=== PATIENT | female | born 1990 | race African-American/Black ===

== ENCOUNTER 2024-12-10 18:50 | Observation (INO) ==
[2024-12-10 19:05] LABS: Basophils #(Absolute) Auto 0.2 (0.0-0.1); Basophils%(Percent) Auto 1.4 (0.1-0.85); Eosinophils#(Absolute)Auto 0.1 (0.0-0.2); Eosinophils%(Percent) Auto 0.5 % (0.4-2.8); Granulocytes % - Auto 53.6 % (47.8-71.3); Granulocytes#(Absolute)- Auto 6.3 (2.3-6.0); Hematocrit 36.6 % (35.9-46.7); Mean Corpuscular Volume 67.7 fl (81.0-93.7); Monocytes #(Absolute)- Auto 0.8 (1.1-3.1); Monocytes %(Percent)- Auto 7.1 % (3.6-9.8); Platelet Count 369 K/uL (152-353); White Blood Count 11.7 K/uL (4.3-9.3)
[2024-12-10] MEDS ORDERED: 0.9 % SODIUM CHLORIDE 1000 ML 1,000 ML IV ONE ×3 (19:15→21:36)
[2024-12-10] MEDS ORDERED: 0.9 % SODIUM CHLORIDE 1000 ML 1,000 ML IV SCH ×2 (19:15→20:15)
[2024-12-10] MEDS: 0.9 % SODIUM CHLORIDE 1000 ML 1,000 ML IV ONE ×3 (19:17→21:45)
[2024-12-10 19:20] LABS: Potassium 3.9 mmol/L (3.6-5.2)
[2024-12-10 19:27] LABS: Urine Appearance CLEAR (CLEAR); Urine Blood 2+ (NEG - TRACE); Urine Color PALE YELLOW (STRAW/YELL.); Urine Urobilinogen Normal (NORMAL)
[2024-12-10 19:28] LABS: Urine Amorphous Sediment Many (Negative)
[2024-12-10 19:29] LABS: Urine Yeast Negative (Negative)
--- NOTE | 2024-12-10 19:52 | Emergency Department Note ---
HPI - General Adult General Chief complaint: Recheck/Abnormal Lab/Rx Stated complaint: NEWLY ONSET DIABETES Time Seen by Provider: 12/10/24 19:02 Source: patient and EMS Mode of arrival: ambulance History of Present Illness HPI narrative: 34-year-old female with EMS arrival from [facility] due to elevated blood glucose earlier this week. Patient states she was started on metformin and insulin sliding scale at the facility. Patient reports increased blood glucose and generalized weakness of last 1 to 2 days. Patient denies diabetes prior to her acute onset earlier this week. Severity: moderate Associated symptoms: Reports headaches and malaise Related Data Home Medications Medication Instructions Recorded Confirmed medroxyprogesterone 150 mg/mL 150 mg IM .every 84 days 12/10/24 12/10/24 intramuscular suspension Allergies Allergy/AdvReac Type Severity Reaction Status Date / Time No Known Drug Allergies Allergy Verified 12/10/24 19:00 Review of Systems Status of ROS 10 or more systems reviewed and unremark able except as noted in history and below PFSH PFS Medical History Anxiety GERD (gastroesophageal reflux disease) DM (diabetes mellitus) Surgical History H/O tubal ligation Exam Constitutional: normal general appearance and no apparent distress Vital Signs - 24 hr 12/10/24 18:50 Temperature 98.2 F Pulse Rate 112 H Respiratory Rate 18 Blood Pressure 131/92 Pulse Oximetry 99 Oxygen Delivery Me thod Room Air HENMT: normocephalic and head/scalp atraumatic dry mucus membranes Eyes: PERRL and conjunctivae normal Neck/C-Spine: visual inspection normal, trachea midline and supple Lymph: no lymphadenopathy noted Chest: inspection of chest normal Respiratory: breath sounds equal bilaterally, normal respiratory effort, clear to auscultation bilaterally, no wheezes and no rales Cardiovascular: normal heart rate noted, regular rhythm noted, no gallop, no rub and no murmur Tachycardia 100-120s on monitor Gastrointestinal: abdomen normal to inspection, abdomen soft to palpation, nontender to palpation, nondistended, no masses and no ascites Genitourinary: no CVA tenderness Back/Pelvis: spine normal to inspection Extremities: normal to inspection, normal to palpation, no tenderness and full ROM Neurology: licensed physical therapist II-XII intact, no movement abnormality noted, gait normal and GCS normal Psychiatry: mental status grossly normal, oriented x3, thought process normal, cooperative and affect normal Skin: skin color normal, no rash, no lesions and no ecchymosis noted Course Course Hospital Course: DKA Pathway 2L NS BOLUS Regular Insulin 10units IV 1L NS 500ml/hr x 1 Pending admission vs transfer Consultations Consultation #1: Maddy, Case Management, admit Vital Signs Vital signs: Vital Signs Temperature 98.2 F 12/10/24 18:50 Pulse Rate 112 H 12/10/24 18:50 Respiratory Rate 18 12/10/24 18:50 Blood Pressure 131/92 12/10/24 18:50 Pulse Oximetry 99 12/10/24 18:50 Oxygen Delivery Method Room Air 12/10/24 18:50 Temperature 98.2 F 12/10/24 18:50 Pulse Rate 112 H 12/10/24 18:50 Respiratory Rate 18 12/10/24 18:50 Blood Pressure 131/92 12/10/24 18:50 Pulse Oximetry 99 12/10/24 18:50 Oxygen Delivery Method Room Air 12/10/24 18:50 Medical Decision Making [facility] Narrative Medical decision making narrative: History and physical exam consistent with acute hyperglycemia in a known diabetic. Patient presented with mild diabetic ketoacidosis. Patient was placed on DKA pathway fluid resuscitated, IV insulin with significant improvement in vital signs and lab analysis. Patient will be admitted to [facility] for continued IV hydration, electrolyte protocols, and IV sliding scale. Differential diagnosis considered below Differential Diagnosis Differential Diagnosis: Diabetic ketoacidosis, hyperglycemia diabetes, electrolyte derangement, acu Medical Records Medical records reviewed: Yes I reviewed the patient's medical records Lab Data Lab results reviewed: Yes I reviewed the patient's lab results Labs: Lab Results 12/10/24 12/10/24 12/10/24 Range/Units 19:00 19:58 23:05 WBC 11.7 H (4.3-9.3) K/uL RBC 5.4 (4.00-5.50) M/uL Hgb 11.1 L (12.5-15.8) gm/dL Hct 36.6 (35.9-46.7) % MCV 67.7 L (81.0-93.7) fl MCH 20.6 L (27.6-32.2) pg MCHC 30.4 L (33.1-35.3) g/dl RDW 20.8 H (11.4-14.2) % Plt Count 369 H (152-353) K/uL MPV 8.8 (6.9-10.8) fl Gran % 53.6 (47.8-71.3) % Lymph % (Auto) 37.4 (20.0-43.0) % [place] % (Auto) 7.1 (3.6-9.8) % Eos % (Auto) 0.5 (0.4-2.8) % Baso % (Auto) 1.4 H (0.1-0.85) Lymph # (Auto) 4.4 H (1.1-3.1) [place] # (Auto) 0.8 L (1.1-3.1) Eos # (Auto) 0.1 (0.0-0.2) Baso # (Auto) 0.2 H (0.0-0.1) Absolute Gran (auto) 6.3 H (2.3-6.0) VBG pH 7.32 L (7.35-7.38) Sodium 128 L 137 (136-145) mmol/L Potassium 3.9 3.1 L (3.6-5.2) mmol/L Chloride 95.0 L 105.0 (98-107) mmol/L Carbon Dioxide 16 L 21 (21-32) mmol/L Anion Gap 17.0 H 11.0 (4-14) mEq/L BUN 15 10 (7-18) mg/dL Creatinine 1.0 0.7 (0.6-1.3) mg/dL Estimated GFR 75.8 116.3 (>59.9) Glucose 565 H* 353 H (70-110) mg/dL Calcium 9.2 8.1 L (8.5-10.1) mg/dL Total Bilirubin 0.39 (0.0-1.0) mg/dL AST 17 (15-37) U/L ALT 17 L (30-65) U/L Alkaline Phosphatase 184 H (50-136) U/L Total Protein 7.9 (6.4-8.2) g/dL Albumin 3.4 (3.4-5.0) g/dL Urine Color Pale yellow (STRAW/YELL.) Urine Appearance Clear (CLEAR) Ur Specific [place] 1.010 (1.001-1.035) Urine Protein Negative (NEGATIVE) Urine Glucose (UA) 4+ (NORMAL) Urine Ketones Large (NEGATIVE) Urine Occult Blood 2+ (NEG - TRACE) Urine Nitrite Negative (NEGATIVE) Urine Bilirubin Negative (NEGATIVE) Urine Urobilinogen Normal (NORMAL) Ur Leukocyte Esterase Negative (NEGATIVE) Urine RBC 10 - 25 (0 - 5) Urine WBC 2 - 5 ( 0 - 5) Ur Epithelial Cells Many (Few/HPF) Amorphous Sediment Many (Negative) Urine Bacteria Few (Negative) Hyaline Casts Few (Negative) RBC Casts 2 - 5 (Negative) Urine Mucus Few (Negative) Urine Trichomonas Negative (Negative) Urine Yeast Negative (Negative) Urine Test Negative (Negative) Fluid pH 6.0 (5 - 9) Acetone, Qual Large Critical Care Time Critical Care Time Critical Care Time: Yes Total Critical Care Time: 40 Attestation: DKA Pathway, IV insulin, consultation, admission Discharge Plan Discharge Patient Disposition: Admitted As Observation Condition: Stable Chief Complaint: Recheck/Abnormal Lab/Rx Clinical Impression: Hyperglycemia due to diabetes mellitus, Acute hypokalemia Prescriptions: No Action medroxyprogesterone 150 mg/mL suspension 150 mg IM .every 84 days Patient Comments: INJECT ONE ML INTRAMUSCULARLY EVERY 84 DAYS (TO be given between 10/29/24- 11/04/24) Print Language: Nepali Referrals: Provider,NO PCP [Primary Care Provider] - Time of Disposition: 23:56
[2024-12-10 23:28] LABS: Potassium 3.1 mmol/L (3.6-5.2)
[2024-12-10] MEDS ORDERED: KETOROLAC 30 MG/ML INJ VIAL IVP PRN (23:56)
[2024-12-10] MEDS ORDERED: ONDANSETRON HCL/PF 4 MG/2 ML VIAL INJ PRN (23:56)
[2024-12-11] MEDS: 0.9 % SODIUM CHLORIDE 1000 ML 1,000 ML IV SCH (02:32)
[2024-12-11 03:59] VITALS: RESP 19
[2024-12-11 04:06] LABS: Potassium 3.1 mmol/L (3.6-5.2)
[2024-12-11 07:55] VITALS: BP 124/74; PULSE 94; TEMP 98.6
--- NOTE | 2024-12-11 11:00 | Discharge Summary ---
DS: Providers Provider Date of admission: 12/10/24 23:56 Primary care physician: NO PCP Provider Attending physician on discharge: Karolina River Discharging clinician: Karolina River Anticipated date of discharge: 12/11/24 DS: Diagnosis Discharge Diagnosis (1) DM (diabetes mellitus): Qualifiers: Diabetes mellitus type: type 2 Diabetes mellitus custodial insulin use: unspecified ent surgeon insulin use status Diabetes mellitus complication status: with hyperglycemia Qualified Code(s): E11.65 - Type 2 diabetes mellitus with hyperglycemia Plan DKA,resolved with IV insulin. Medrol dose pack stopped. Now on SSI. Discharge home to continue AC/HS SSI prn for hyperglycemia. DS: Summary Hospital Course Hospital Course: DKA Pathway 2L NS BOLUS Regular Insulin 10units IV 1L NS 500ml/hr x 1 Pending admission vs transfer Patient on Regular SSI AC/HS. Can discharge home. Status at Discharge Overall status at discharge: patient is back to baseline Time Spent with Patient Time attestation: Total time spent providing and/or coordinating discharge services: Exam Constitutional: normal general appearance, no apparent distress, average body habitus, no limitations and alert Vital Signs - 24 hr 12/10/24 18:50 12/10/24 19:30 12/10/24 20:00 Temperature 98.2 F Pulse Rate 112 H 94 H 89 Pulse Rate [Bilate ral] Respiratory Rate 18 18 18 Blood Pressure 131/92 113/72 104/61 Blood Pressure [Le ft Arm] Pulse Oximetry 99 98 98 Oxygen Delivery Me thod Room Air Room Air Room Air 12/10/24 20:30 12/10/24 21:30 12/10/24 22:30 Temperature Pulse Rate 83 91 H 97 H Pulse Rate [Bilate ral] Respiratory Rate 18 20 20 Blood Pressure 100/60 131/73 109/64 Blood Pressure [Le ft Arm] Pulse Oximetry 98 99 97 Oxygen Delivery Me thod Room Air Room Air Room Air 12/10/24 23:30 12/11/24 00:30 12/11/24 00:30 Temperature 98.2 F Pulse Rate 83 76 76 Pulse Rate [Bilate ral] Respiratory Rate 20 20 20 Blood Pressure 119/63 114/64 114/64 Blood Pressure [Le ft Arm] Pulse Oximetry 98 99 99 Oxygen Delivery Me thod Room Air Room Air 12/11/24 03:58 12/11/24 07:53 Temperature 98.3 F 98.6 F Pulse Rate Pulse Rate [Bilate ral] 77 94 H Respiratory Rate 19 19 Blood Pressure Blood Pressure [Le ft Arm] 104/65 124/74 Pulse Oximetry 98 97 Oxygen Delivery Me thod Room Air Room Air HENMT: normocephalic, head/scalp atraumatic and hearing grossly normal bilaterally Eyes: EOMs intact bilaterally, conjunctivae normal and no scleral icterus Neck/C-Spine: visual inspection normal and cervical spine nontender Lymph: no lymphadenopathy noted and no lymphedema noted Chest: inspection of chest normal Respiratory: breath sounds equal bilaterally, normal respiratory effort, clear to auscultation bilaterally, no wheezes, no rales and no use of accessory muscles Cardiovascular: normal heart rate noted, regular rhythm noted, no gallop, no rub, no murmur and no JVD Gastrointestinal: abdomen normal to inspection, abdomen soft to palpation, nontender to palpation and normoactive bowel sounds Genitourinary: deferred Back/Pelvis: no thoracic spine tenderness and no lumbar spine tenderness Extremities: normal to inspection, normal to palpation, no tenderness and full ROM Neurology: patient access specialist II-XII intact, no movement abnormality noted, no focal motor deficit noted and speech normal Psychiatry: mental status grossly normal, oriented x3, thought process normal, cooperative and affect normal Skin: skin color normal, no rash and no lesions DS: Data Data Completed and Pending Labs on day of discharge: Labs from last 24 hours 12/11/24 12/10/24 12/10/24 04:00 23:05 19:58 WBC RBC Hgb Hct MCV MCH MCHC RDW Plt Count MPV Gran % Lymph % (Auto) [place] % (Auto) Eos % (Auto) Baso % (Auto) Lymph # (Auto) [place] # (Auto) Eos # (Auto) Baso # (Auto) Absolute Gran (auto) VBG pH 7.32 L Sodium 137 137 Potassium 3.1 L 3.1 L Chloride 104.0 105.0 Carbon Dioxide 25 21 Anion Gap 8.0 11.0 BUN 9 10 Creatinine 0.8 0.7 Estimated GFR 99.1 116.3 Glucose 333 H 353 H Calcium 8.3 L 8.1 L Magnesium 1.8 Total Bilirubin AST ALT Alkaline Phosphatase Total Protein Albumin Urine Color Urine Appearance Ur Specific [place] Urine Protein Urine Glucose (UA) Urine Ketones Urine Occult Blood Urine Nitrite Urine Bilirubin Urine Urobilinogen Ur Leukocyte Esterase Urine RBC Urine WBC Ur Epithelial Cells Amorphous Sediment Urine Bacteria Hyaline Casts RBC Casts Urine Mucus Urine Trichomonas Urine Yeast Urine Test Fluid pH Acetone, Qual 12/10/24 19:00 WBC 11.7 H RBC 5.4 Hgb 11.1 L Hct 36.6 MCV 67.7 L MCH 20.6 L MCHC 30.4 L RDW 20.8 H Plt Count 369 H MPV 8.8 Gran % 53.6 Lymph % (Auto) 37.4 [place] % (Auto) 7.1 Eos % (Auto) 0.5 Baso % (Auto) 1.4 H Lymph # (Auto) 4.4 H [place] # (Auto) 0.8 L Eos # (Auto) 0.1 Baso # (Auto) 0.2 H Absolute Gran (auto) 6.3 H VBG pH Sodium 128 L Potassium 3.9 Chloride 95.0 L Carbon Dioxide 16 L Anion Gap 17.0 H BUN 15 Creatinine 1.0 Estimated GFR 75.8 Glucose 565 H* Calcium 9.2 Magnesium Total Bilirubin 0.39 AST 17 ALT 17 L Alkaline Phosphatase 184 H Total Protein 7.9 Albumin 3.4 Urine Color Pale yellow Urine Appearance Clear Ur Specific [place] 1.010 Urine Protein Negative Urine Glucose (UA) 4+ Urine Ketones Large Urine Occult Blood 2+ Urine Nitrite Negative Urine Bilirubin Negative Urine Urobilinogen Normal Ur Leukocyte Esterase Negative Urine RBC 10 - 25 Urine WBC 2 - 5 Ur Epithelial Cells Many Amorphous Sediment Many Urine Bacteria Few Hyaline Casts Few RBC Casts 2 - 5 Urine Mucus Few Urine Trichomonas Negative Urine Yeast Negative Urine Test Negative Fluid pH 6.0 Acetone, Qual Large Discharge Plan Discharge Disposition: Home, Self-Care Condition: Stable Discharge Medications: Continued medroxyprogesterone 150 mg/mL suspension 150 mg IM .every 84 days Patient Comments: INJECT ONE ML INTRAMUSCULARLY EVERY 84 DAYS (TO be given between 10/29/24- 11/04/24) Discharge Orders: Discharge Order (Routine); Ordered 12/11/24 Ordered By: Karolina River Diet: advance to your usual diet Interventions: Discharge Assessment Last Done: 12/11/24 11:08 Plan of Treatment: Continue SSI AC/HS Forms: Portal/Health Info Access Inst Follow-Ups: Provider,NO PCP [Primary Care Provider] - (Regular AC/HS glucose monitoring for the next week to confirm return to good glucose control on current home medications.)
--- NOTE | 2024-12-12 15:38 | Short Stay Summary ---
H&P: HPI History of Present Illness Chief complaint: HYPERGLYCEMIA Narrative: 34 year old female with elevated blood glucose earlier this week. Patient states she started on Metformin and insulin sliding scale at the confinement facility. She eports increased blood glucose and generalized weaknessfor last 1 to 2 days. Patient denies history of diabetes prior to her acute onset earlier this week. Admits headaches and malaise. Patient was admitted and administered IV insulin, IV hydratin and sliding scale. Glucose back down today. Today she states she is feeling much better. Denies any complaints. Review of Systems Status of ROS 10 or more systems reviewed and unremark able except as noted in history and below [facility] Medical History Anxiety GERD (gastroesophageal reflux disease) DM (diabetes mellitus) Surgical History H/O tubal ligation Social History Problems where you live: no known problems Highest level of school completed/degree received: high school Meds Home Medications and Allergies Home Medications Medication Instructions Recorded Confirmed Type medroxyprogesterone 150 mg/mL 150 mg IM .every 84 days 12/10/24 12/10/24 History intramuscular suspension Allergies Allergy/AdvReac Type Severity Reaction Status Date / Time No Known Drug Allergies Allergy Verified 12/10/24 19:00 Exam Constitutional: normal general appearance, no apparent distress, average body habitus, no limitations and alert Vital Signs - 24 hr 12/10/24 18:50 12/10/24 19:30 12/10/24 20:00 Temperature 98.2 F Pulse Rate 112 H 94 H 89 Pulse Rate [Bilate ral] Respiratory Rate 18 18 18 Blood Pressure 131/92 113/72 104/61 Blood Pressure [Le ft Arm] Pulse Oximetry 99 98 98 Oxygen Delivery Me thod Room Air Room Air Room Air 12/10/24 20:30 12/10/24 21:30 12/10/24 22:30 Temperature Pulse Rate 83 91 H 97 H Pulse Rate [Bilate ral] Respiratory Rate 18 20 20 Blood Pressure 100/60 131/73 109/64 Blood Pressure [Le ft Arm] Pulse Oximetry 98 99 97 Oxygen Delivery Me thod Room Air Room Air Room Air 12/10/24 23:30 12/11/24 00:30 12/11/24 00:30 Temperature 98.2 F Pulse Rate 83 76 76 Pulse Rate [Bilate ral] Respiratory Rate 20 20 20 Blood Pressure 119/63 114/64 114/64 Blood Pressure [Le ft Arm] Pulse Oximetry 98 99 99 Oxygen Delivery Me thod Room Air Room Air 12/11/24 03:58 12/11/24 07:53 Temperature 98.3 F 98.6 F Pulse Rate Pulse Rate [Bilate ral] 77 94 H Respiratory Rate 19 19 Blood Pressure Blood Pressure [Le ft Arm] 104/65 124/74 Pulse Oximetry 98 97 Oxygen Delivery Me thod Room Air Room Air HENMT: normocephalic, head/scalp atraumatic and hearing grossly normal bilaterally dry mucus membranes Eyes: PERRL, EOMs intact bilaterally, conjunctivae normal and no scleral icterus Neck/C-Spine: visual inspection normal, trachea midline, cervical spine nontender and supple Lymph: no lymphadenopathy noted and no lymphedema noted Chest: inspection of chest normal Respiratory: breath sounds equal bilaterally, normal respiratory effort, clear to auscultation bilaterally, no wheezes, no rales and no use of accessory muscles Cardiovascular: normal heart rate noted, regular rhythm noted, no gallop, no rub, no murmur and no JVD Tachycardia 100-120s on monitor Gastrointestinal: abdomen normal to inspection, abdomen soft to palpation, nontender to palpation, nondistended, normoactive bowel sounds, no masses and no ascites Genitourinary: no CVA tenderness deferred Back/Pelvis: spine normal to inspection, no thoracic spine tenderness and no lumbar spine tenderness Extremities: normal to inspection, normal to palpation, no tenderness and full ROM Neurology: coffin maker II-XII intact, no movement abnormality noted, no focal motor deficit noted, gait normal, speech normal and GCS normal Psychiatry: mental status grossly normal, oriented x3, thought process normal, cooperative and affect normal Skin: skin color normal, no rash, no lesions and no ecchymosis noted Assessment and Plan Assessment and Plan (1) DM (diabetes mellitus): Qualifiers: Diabetes mellitus type: type 2 Diabetes mellitus sales service representative insulin use: unspecified sales service representative insulin use status Diabetes mellitus complication status: with hyperglycemia Qualified Code(s): E11.65 - Type 2 diabetes mellitus with hyperglycemia Code(s): E11.9 - Type 2 diabetes mellitus without complications Plan Discharge patient back to facility. Regualr glucose monitoring with SSI. Results Labs Labs: Urine 12/10/24 19:00 Urine Color Pale yellow Urine Appearance Clear Ur Specific [place] 1.010 Urine Protein Negative Urine Glucose (UA) 4+ ABG ABG results: 12/10/24 19:58 VBG pH 7.32 L DS: Providers Provider Date of admission: 12/10/24 23:56 Primary care physician: NO PCP Provider Attending physician on discharge: Karolina River Discharging clinician: Karolina River Anticipated date of discharge: 12/11/24 DS: Summary Hospital Course Hospital Course: DKA Pathway 2L NS BOLUS Regular Insulin 10units IV 1L NS 500ml/hr x 1 Pending admission vs transfer Patient on Regular SSI AC/HS. Can discharge home. Status at Discharge Overall status at discharge: patient is progressing back to baseline Time Spent with Patient Time attestation: Total time spent providing and/or coordinating discharge services:35 minutes Discharge Plan Discharge Disposition: Home, Self-Care Condition: Stable Discharge Medications: Continued medroxyprogesterone 150 mg/mL suspension 150 mg IM .every 84 days Patient Comments: INJECT ONE ML INTRAMUSCULARLY EVERY 84 DAYS (TO be given between 10/29/24- 11/04/24) Discharge Orders: Discharge Order (Routine); Ordered 12/11/24 Ordered By: Karolina River Diet: advance to your usual diet Interventions: Discharge Assessment Last Done: 12/11/24 11:08 MED/SURG & ICU Observation Charge Sheet Last Done: 12/11/24 11:10 Plan of Treatment: Continue SSI AC/HS Patient Instructions: Diabetic Hyperglycemia (GEN) Forms: Portal/Health Info Access Inst Follow-Ups: Provider,NO PCP [Primary Care Provider] - (Regular AC/HS glucose monitoring for the next week to confirm return to good glucose control on current home medications.) Discharge Date/Time: 12/11/24 11:35
== END 2024-12-11 11:35 | disposition home or self-care (01) ==
LOC: MS 18:50 → ED 18:50 → MS 12-11 00:41
PROVIDERS: ADMIT Physician Assistant; ATTEND Family Medicine
DX: Z79.3 Long term (current) use of hormonal contraceptives; K21.9 Gastro-esophageal reflux disease without esophagitis; E11.10 Type 2 diabetes mellitus with ketoacidosis without coma; E87.6 Hypokalemia; F41.9 Anxiety disorder, unspecified; Z79.84 Long term (current) use of oral hypoglycemic drugs; Z79.4 Long term (current) use of insulin